=== PATIENT | male | born 1960 | race Caucasian/White ===

== ENCOUNTER 2022-05-31 18:29 | Emergency (ER) | payer BC | END 2022-05-31 20:00 | disposition home or self-care (01) | LOC: LL.ED 18:29 | DX: S62.312A Displaced fracture of base of third metacarpal bone, right hand, initial encounter for closed fracture (principal); W50.0XXA Accidental hit or strike by another person, initial encounter | CPT/HCPCS: 73110-RT; 73130-RT; 99283 ==

== ENCOUNTER 2022-06-08 12:25 | Emergency (ER) | payer BC | END 2022-06-08 14:40 | disposition home or self-care (01) | LOC: LL.ED 12:25 | DX: S62.344D Nondisplaced fracture of base of fourth metacarpal bone, right hand, subsequent encounter for fracture with routine healing (principal); J44.9 Chronic obstructive pulmonary disease, unspecified; N40.0 Benign prostatic hyperplasia without lower urinary tract symptoms; Z72.0 Tobacco use; Z79.899 Other long term (current) drug therapy | CPT/HCPCS: 29125; 73130-RT; 99283 ==